=== PATIENT | male | born 1985 | race Caucasian/White ===

== ENCOUNTER 2017-10-12 19:42 | Emergency (ER) | payer OTHER ==
--- NOTE | 2017-10-12 19:50 | ED ---
General Adult HPI - General Chief complaint: Extremity Injury, Lower Stated complaint: ANKLE INJURY Time Seen by Provider: 10/12/17 19:48 Source: EMS, RN notes reviewed, old records reviewed Mode of arrival: EMS Limitations: no limitations - History of Present Illness Initial comments: This is a 32-year-old male the ER status post injury while jumping on trampoline. Patient sustained significant right ankle injury with right ankle pain. No medical history no significant surgical history no prior orthopedic evaluation and treatment. No modifying factors for pain. Patient unable to ambulate on joint secondary to severe deformity of right ankle, severe right ankle pain. Patient denies any other injury denies drugs or alcohol - Related Data Allergies Allergy/AdvReac Type Severity Reaction Status Date / Time acetaminophen [From Vicodin] Allergy Unknown Verified 10/12/17 19:50 hydrocodone [From Vicodin] Allergy Unknown Verified 10/12/17 19:50 Review of Systems ROS Statement: Those systems with pertinent positive or pertinent negative responses have been documented in the HPI. ROS Other: All systems not noted in ROS Statement are negative. Past Medical History Past Medical History: No Reported History History of Any Multi-Drug Resistant Organisms: None Reported Past Surgical History: No Surgical Hx Reported Past Psychological History: No Psychological Hx Reported Smoking Status: Current every day smoker Past Alcohol Use History: Daily Past Drug Use History: None Reported General Exam - General Exam Comments Initial Comments: Significant deformity right ankle Limitations: no limitations General appearance: alert, in no apparent distress Head exam: Present: atraumatic, normocephalic, normal inspection Eye exam: Present: normal appearance, PERRL, EOMI. Absent: scleral icterus, conjunctival injection, periorbital swelling ENT exam: Present: normal exam, mucous membranes moist Neck exam: Present: normal inspection. Absent: tenderness, meningismus, lymphadenopathy Respiratory exam: Present: normal lung sounds bilaterally. Absent: respiratory distress, wheezes, rales, rhonchi, stridor Cardiovascular Exam: Present: regular rate, normal rhythm, normal heart sounds. Absent: systolic murmur, diastolic murmur, rubs, gallop, clicks GI/Abdominal exam: Present: soft, normal bowel sounds. Absent: distended, tenderness, guarding, rebound, rigid Extremities exam: Present: normal inspection, full ROM, normal capillary refill. Absent: tenderness, pedal edema, joint swelling, calf tenderness Back exam: Present: normal inspection Neurological exam: Present: alert, oriented X3, CN II-XII intact Psychiatric exam: Present: normal affect, normal mood Skin exam: Present: warm, dry, intact, normal color. Absent: rash Course Vital Signs 10/12/17 10/12/17 10/12/17 19:48 20:34 21:02 Temperature 99.1 F Pulse Rate 93 84 84 Respiratory 18 19 17 Rate Blood Pressure 116/55 119/82 107/74 O2 Sat by Pulse 99 99 97 Oximetry 10/12/17 21:16 Temperature 98.9 F Pulse Rate Respiratory Rate Blood Pressure O2 Sat by Pulse Oximetry Procedures - Orthopedic Fracture Reduction Fracture #1 Consent Obtained: verbal consent Time Out Performed: Yes Side: right Fracture Reduction Location: tibia, fibula Post Reduction X-rays Demonstrate: acceptable reduction Post-Reduction Neuro Exam: intact Post-Reduction Vascular Exam: intact Splint Applied: Yes Patient Tolerated Procedure: well - Orthopedic Joint Reduction Joint #1 Consent Obtained: verbal consent Time Out Performed: Yes Side: right Joint Reduction Location: ankle Technique Used: traction/counter-traction Post-Reduction Neuro Exam: intact Post Reduction X-Ray Obtained: Yes Medical Decision Making - Medical Decision Making 32 male the ER was significant ankle fracture and dislocation. Ankle is sent reduced here in the emergency room, splinted and patient can be discharged home - Radiology Data Radiology results: report reviewed (X-ray shows bimalleolar fracture with displacement), image reviewed Disposition Clinical Impression: Closed right ankle fracture, Dislocation of right ankle joint Disposition: HOME SELF-CARE Condition: Good Instructions: Ankle Fracture (ED), Ankle Dislocation (ED) Is patient prescribed a controlled substance at d/c from ED?: No Referrals: Jesse Mullins DO [Doctor of Osteopathic Medicine] - 1-2 days
[2017-10-12] MEDS ORDERED: MORPHINE SULFATE 4 MG/ML SYRINGE IVP STA (20:19)
[2017-10-12] MEDS ORDERED: LORazepam 2 MG/ML INJ IV STA (20:19)
[2017-10-12 20:36] VITALS: PULSE 84
--- NOTE | 2017-10-12 20:38 | XR ---
EXAMINATION TYPE: XR ankle limited RT DATE OF EXAM: 10/12/2017 COMPARISON: NONE HISTORY: 32-year-old male with pain after injury TECHNIQUE: 2 views FINDINGS: There is farooq fracture dislocation with bimalleolar fractures that are displaced. The foot is disloc ated posteriorly relative to the leg. IMPRESSION: Bimalleolar fracture dislocation.
[2017-10-12] MEDS ORDERED: traMADol 50 MG STARTER PACK 3 TAB BTL PO STA (20:48)
[2017-10-12] MEDS ORDERED: traMADol 50 MG TAB PO STA (20:48)
[2017-10-12 21:04] VITALS: BP 107/74; RESP 17
--- NOTE | 2017-10-12 21:06 | XR ---
EXAMINATION TYPE: XR ankle complete RT DATE OF EXAM: 10/12/2017 COMPARISON: Earlier today HISTORY: 32-year-old male pain, post reduction TECHNIQUE: 2 views FINDINGS: Overlying fiberglass splint obscure fine osseous detail. Improved alignment of the patient' s unstable bimalleolar fractures. Some residual mild displacement remains. The tibiotalar joint remai ns slightly incongruent on the frontal view. IMPRESSION: Interval closed reduction of the unstable bimalleolar ankle fractures. Significantly improved alignme nt with residual mild displacement.
[2017-10-12 21:17] VITALS: TEMP 98.9
== END 2017-10-12 21:17 | disposition home or self-care (01) ==
LOC: EC 19:42
DX: S82.841A Displaced bimalleolar fracture of right lower leg, initial encounter for closed fracture (principal); F17.200 Nicotine dependence, unspecified, uncomplicated; Z88.5 Allergy status to narcotic agent; Z88.8 Allergy status to other drugs, medicaments and biological substances; W09.8XXA Fall on or from other playground equipment, initial encounter; Y92.89 Other specified places as the place of occurrence of the external cause; Y93.44 Activity, trampolining
CPT/HCPCS: 73600; 73610; 99284; 27810; 96374; 96375; J2060; J2270